=== PATIENT | male | born 1960 | race Caucasian/White ===

== ENCOUNTER 2024-05-07 15:18 | Inpatient (IN) | payer MEDICARE, BC ==
[~2024-05-07] VITALS: Ht 165.1 cm; Wt 60.8 kg
[2024-05-07] MEDS: VANCOMYCIN 1 GM in IV D5W 250 ML IV ONE (16:30)
[2024-05-07] MEDS: CEFEPIME 1 GM in IV D5W 50 ML IV ONE (17:04)
[2024-05-07 17:19] LABS: ABG PH 7.354 (7.350-7.450); SITE, ABG LEFT RADIAL
[2024-05-07 17:20] LABS: BASOPHILS % (AUTO) 0.2 % (0.0-2.0); EOSINOPHILS # (AUTO) 0.1 K/uL (0.0-0.7); EOSINOPHILS % (AUTO) 1.4 % (0.0-6.0); HEMATOCRIT 32 % (39-51); HEMOGLOBIN 10.6 g/dL (13.5-17.5); LYMPHOCYTES # (AUTO) 1.2 K/uL (0.8-4.8); LYMPHOCYTES % (AUTO) 12.2 % (20.0-44.0); MEAN CORPUSCULAR HEMOGLOBIN 31 PG (26.0-33.0); MEAN CORPUSCULAR HGB CONC 33 g/dl (31.0-36.0); MEAN CORPUSCULAR VOLUME 94 fL (80-96); MONOCYTES # (AUTO) 0.4 K/uL (0.1-1.30); MONOCYTES % (AUTO) 3.9 % (2.0-12.0); NEUTROPHILS # (AUTO) 8.2 K/uL (1.8-8.9); NEUTROPHILS % (AUTO) 82.3 % (43.0-81.0); PLATELET COUNT (AUTO) 345 K/uL (150-450); RED BLOOD CELL COUNT(AUTO) 3.39 MIL/uL (4.5-6.0)
[2024-05-07 17:20] LABS: ABG BASE EXCESS -2.5 mmol/L (-2.0-3.0); ABG PO2 169.8 mmHg (83.0-108.0); ABG TOTAL HEMOGLOBIN 10.4 G/dL (13.5-17.5); COHb 0.2 % (0.5-1.5); MetHb 0.3 % (0.0-1.5); O2Hb 98.5 % (94.0-97.0)
[2024-05-07 17:37] VITALS: O2SAT 96
[2024-05-07] MEDS: ALBUTEROL FS 2.5 MG/3 ML VIAL.NEB NEB ONE (17:37)
[2024-05-07] MEDS: IPRATROPIUM NEB FS 0.5 MG/2.5 ML AMPUL.NEB NEB ONE (17:37)
[2024-05-07 17:44] LABS: CALCIUM, SERUM 9.2 mg/dL (8.5-10.1); CARBON DIOXIDE 27 mmol/L (21-32); CHLORIDE 100 mmol/L (98-107); CREATININE 2.4 mg/dL (0.6-1.3); GLUCOSE 167 mg/dL (74-106); POTASSIUM 5.4 mmol/L (3.5-5.1); SODIUM SERUM 137 mmol/L (136-145); UREA NITROGEN, BLOOD 68 mg/dL (7-18)
[2024-05-07 17:47] VITALS: O2SAT 97
[2024-05-07] MEDS: methylPREDNISolone SOD SUCC 125 MG/2ML VIAL IV ONE (18:00)
[2024-05-07 18:08] LABS: LACTIC ACID 3.9 mmol/L (0.4-2.0)
[2024-05-07 18:12] LABS: ALANINE AMINOTRANSFERASE 17 U/L (12-78); ALBUMIN 3.5 g/dL (3.4-5.0); ALKALINE PHOSPHATASE 126 U/L (46-116); ASPARTATE AMINOTRANSFERASE 15 U/L (15-37); BILIRUBIN,DIRECT 0.1 mg/dL (0.0-0.2); BILIRUBIN,TOTAL 0.3 mg/dL (0.2-1.0); INR 0.97 (0.91-1.10); PARTIAL THROMBOPLASTIN TIME 28.8 SEC (24.3-34.3); PROTHROMBIN TIME 10.3 SECS (9.2-11.1); TOTAL PROTEIN, SERUM 9.1 g/dL (6.4-8.2)
[2024-05-07] MEDS ORDERED: TERA2CAP4 GT (18:15)
[2024-05-07] MEDS ORDERED: ACET-2070 GT (18:15)
[2024-05-07] MEDS ORDERED: POLY30DR EACHEYE (18:15)
[2024-05-07] MEDS ORDERED: INSU100V7 SQ (18:15)
[2024-05-07] MEDS ORDERED: SEVE0.8P3 GT (18:15)
[2024-05-07] MEDS ORDERED: ATOR40TA GT (18:15)
[2024-05-07] MEDS ORDERED: FOLI0.8T23 GT (18:15)
[2024-05-07] MEDS ORDERED: NEPRO 1.8 GT (18:15)
[2024-05-07] MEDS ORDERED: INSU100V39 SQ (18:15)
[2024-05-07] MEDS ORDERED: SACU1TAB GT (18:15)
[2024-05-07] MEDS ORDERED: ALBU2.5V38 IH (18:15)
[2024-05-07] MEDS ORDERED: METO25TA6 GT (18:15)
[2024-05-07] MEDS ORDERED: ZARBEES COUGH GT (18:15)
[2024-05-07] MEDS ORDERED: BETH5TAB2 GT (18:15)
[2024-05-07] MEDS ORDERED: IPRA0.2S9 IH (18:15)
[2024-05-07] MEDS ORDERED: HYDR-3980 GT (18:15)
[2024-05-07] MEDS ORDERED: FINA5TAB11 GT (18:15)
[2024-05-07] MEDS ORDERED: FAMO20TA80 GT (18:15)
[2024-05-07] MEDS ORDERED: MIDO2.5T GT (18:15)
[2024-05-07] MEDS ORDERED: EMPA10TA GT (18:15)
[2024-05-07] MEDS ORDERED: SENN8.6T19 GT (18:15)
[2024-05-07] MEDS ORDERED: ASPI-1169 GT (18:15)
[2024-05-07] MEDS ORDERED: LEVO50TA GT (18:15)
[2024-05-07] MEDS ORDERED: PHEN180L4 GT (18:15)
[2024-05-07] MEDS ORDERED: DEXT1CAP3 GT (18:15)
[2024-05-07] MEDS: IV NS 0.9% 1,000 ML BAG IV ONE (20:17)
[2024-05-07] MEDS ORDERED: ACETAMINOPHEN 325 MG TABLET MC PRN (21:30)
[2024-05-07] MEDS ORDERED: Z GUARD REMEDY 4 OZ OINT TP PRN (21:30)
[2024-05-07] MEDS ORDERED: CEFEPIME 1 GM in IV D5W 50 ML IV SCH (21:30)
[2024-05-07] MEDS ORDERED: DEXTROSE 50%-WATER 50 ML DISP.SYRIN IV PRN (21:30)
[2024-05-07] MEDS ORDERED: ONDANSETRON HCL/PF 4 MG/2 ML VIAL IVP PRN (21:30)
[2024-05-07] MEDS ORDERED: HYDROCODONE/APAP 10/325MG TABLET GT PRN (22:00)
[2024-05-07] MEDS ORDERED: ACETAMINOPHEN 650 MG/20.3 ML UDC GT PRN (23:45)
[2024-05-08] VITALS (7 sets, daily range): BP systolic 118–133; BP diastolic 69–76; TEMP 97.3–97.9; O2SAT 93–100
[2024-05-08] MEDS: BLOOD SUGAR DIAGNOSTIC 1 EACH STRIP IN SCH
[2024-05-08] MEDS: POLYVINYL ALCOHOL/POVIDONE 0.4 ML DROPERETTE EACHEYE SCH
[2024-05-08] MEDS: ATORVASTATIN 40 MG TABLET GT SCH (02:00)
[2024-05-08] MEDS: ALBUTEROL FS 2.5 MG/0.5 ML VIAL.NEB NEB PRN (02:28)
[2024-05-08] MEDS: IPRATROPIUM NEB FS 0.5 MG/2.5 ML AMPUL.NEB NEB PRN (02:28)
[2024-05-08] MEDS ORDERED: METOPROLOL TARTRATE 25 MG TABLET GT SCH (05:00)
[2024-05-08] MEDS: methylPREDNISolone SOD SUCC 40 MG/ML VIAL IV SCH (05:16)
[2024-05-08] MEDS: INSULIN REGULAR, HUMAN 100 UNIT/ML 3 ML VIAL SQ PRN (05:26)
[2024-05-08 07:19] LABS: HEMATOCRIT 32 % (39-51); HEMOGLOBIN 10.9 g/dL (13.5-17.5); LYMPHOCYTES # (AUTO) 0.4 K/uL (0.8-4.8); LYMPHOCYTES % (AUTO) 5.6 % (20.0-44.0); MEAN CORPUSCULAR HEMOGLOBIN 33 PG (26.0-33.0); MEAN CORPUSCULAR HGB CONC 34 g/dl (31.0-36.0); MEAN CORPUSCULAR VOLUME 96 fL (80-96); MONOCYTES % (AUTO) 0.5 % (2.0-12.0); NEUTROPHILS # (AUTO) 6.7 K/uL (1.8-8.9); NEUTROPHILS % (AUTO) 93.9 % (43.0-81.0); PLATELET COUNT (AUTO) 284 K/uL (150-450); RED BLOOD CELL COUNT(AUTO) 3.33 MIL/uL (4.5-6.0); RED CELL DISTRIBUTION WIDTH 14.2 % (11.5-15.0); WHITE BLOOD COUNT (AUTO) 7.1 K/uL (4.3-11.0)
[2024-05-08 07:20] LABS: CALCIUM, SERUM 9.2 mg/dL (8.5-10.1); CREATININE 1.6 mg/dL (0.6-1.3); MAGNESIUM 2.6 mg/dL (1.8-2.4); PHOSPHORUS 3.9 mg/dL (2.5-4.9); POTASSIUM 5.4 mmol/L (3.5-5.1)
[2024-05-08] MEDS: VANCOMYCIN 500 MG in IV D5W 100 ML IV SCH (08:10)
[2024-05-08] MEDS: LEVOTHYROXINE SODIUM 50 MCG TABLET GT SCH (08:10)
[2024-05-08] MEDS ORDERED: Medication Not On Formulary EA (Dextromethorphan Hbr/Quinidine (Nuedexta 20-10 Mg Capsul GT SCH (09:00)
[2024-05-08] MEDS ORDERED: MIDODRINE HCL 2.5 MG TABLET GT SCH (09:00)
[2024-05-08] MEDS: EMPAGLIFLOZIN 10 MG TABLET GT SCH (09:00)
[2024-05-08] MEDS: SEVELAMER CARBONATE 800 MG POWD.PACK GT SCH (10:08)
[2024-05-08] MEDS: SENNOSIDES 8.6 MG TABLET GT SCH (10:08)
[2024-05-08] MEDS: MIDODRINE HCL (5MG) 5 MG TABLET GT SCH (10:09)
[2024-05-08] MEDS: PANTOPRAZOLE 40 MG VIAL IV SCH (10:09)
[2024-05-08] MEDS: ASPIRIN 81 MG TAB.CHEW GT SCH (10:09)
[2024-05-08] MEDS: FINASTERIDE (5 MG) 5 MG TABLET GT SCH (10:10)
[2024-05-08] MEDS: VIT B CMPLX 3/FA/VIT C/BIOTIN 1 TAB TABLET GT SCH (10:10)
[2024-05-08] MEDS: SACUBITRIL/VALSARTAN 24/26MG TABLET GT SCH (10:10)
[2024-05-08] MEDS: BETHANECHOL CHLORIDE (25 MG) 25 MG TABLET GT SCH (10:11)
[2024-05-08] MEDS: HEPARIN SODIUM, PORCINE 5000 UNITS/1 ML VIAL SQ SCH (10:12)
[2024-05-08] MEDS: CEFEPIME 2 GM in IV D5W 100 ML IV SCH (10:14)
[2024-05-08] MEDS: GLUCERNA 1.2 1,000 ML BOTTLE NG SCH (11:35)
[2024-05-08] MEDS ORDERED: GUAIFENESIN/D-METHORPHAN HB 5 ML UDC PO PRN (12:30)
[2024-05-08] MEDS ORDERED: CEFEPIME 0.5 GM in IV D5W 50 ML IV SCH (21:00)
[2024-05-08] MEDS: TERAZOSIN HCL 1 MG CAPSULE GT SCH (21:04)
[2024-05-09] VITALS: BP 114/60; TEMP 97.9; O2SAT 100
[2024-05-09 04:00] VITALS: BP 105/70; TEMP 97.7; O2SAT 100
[2024-05-09 07:34] LABS: HEMATOCRIT 29 % (39-51); HEMOGLOBIN 9.8 g/dL (13.5-17.5); LYMPHOCYTES # (AUTO) 0.4 K/uL (0.8-4.8); LYMPHOCYTES % (AUTO) 3.5 % (20.0-44.0); MEAN CORPUSCULAR HEMOGLOBIN 32 PG (26.0-33.0); MEAN CORPUSCULAR HGB CONC 34 g/dl (31.0-36.0); MEAN CORPUSCULAR VOLUME 94 fL (80-96); MONOCYTES # (AUTO) 0.3 K/uL (0.1-1.30); MONOCYTES % (AUTO) 2.2 % (2.0-12.0); NEUTROPHILS # (AUTO) 11.7 K/uL (1.8-8.9); NEUTROPHILS % (AUTO) 94.3 % (43.0-81.0); PLATELET COUNT (AUTO) 322 K/uL (150-450); RED CELL DISTRIBUTION WIDTH 14.2 % (11.5-15.0); WHITE BLOOD COUNT (AUTO) 12.4 K/uL (4.3-11.0)
[2024-05-09 08:00] VITALS: BP 123/64; TEMP 97.9; O2SAT 100
[2024-05-09 08:08] LABS: CALCIUM, SERUM 9.2 mg/dL (8.5-10.1); CREATININE 1.5 mg/dL (0.6-1.3); POTASSIUM 4.9 mmol/L (3.5-5.1)
[2024-05-09 16:00] VITALS: BP 128/76; TEMP 97.9; O2SAT 99
[2024-05-09 20:00] VITALS: BP 137/71; TEMP 98.1; O2SAT 100
[2024-05-09 20:51] VITALS: BP 137/71; TEMP 98.1; O2SAT 100
[2024-05-10 07:19] LABS: HEMATOCRIT 33 % (39-51); LYMPHOCYTES # (AUTO) 0.7 K/uL (0.8-4.8); LYMPHOCYTES % (AUTO) 7.1 % (20.0-44.0); MEAN CORPUSCULAR HEMOGLOBIN 32 PG (26.0-33.0); MEAN CORPUSCULAR HGB CONC 34 g/dl (31.0-36.0); MEAN CORPUSCULAR VOLUME 95 fL (80-96); MONOCYTES # (AUTO) 0.3 K/uL (0.1-1.30); MONOCYTES % (AUTO) 3.3 % (2.0-12.0); NEUTROPHILS # (AUTO) 8.8 K/uL (1.8-8.9); NEUTROPHILS % (AUTO) 89.6 % (43.0-81.0); PLATELET COUNT (AUTO) 280 K/uL (150-450); RED BLOOD CELL COUNT(AUTO) 3.46 MIL/uL (4.5-6.0); RED CELL DISTRIBUTION WIDTH 14.4 % (11.5-15.0); WHITE BLOOD COUNT (AUTO) 9.8 K/uL (4.3-11.0)
[2024-05-10 07:43] LABS: CREATININE 1.3 mg/dL (0.6-1.3); POTASSIUM 5.5 mmol/L (3.5-5.1)
[2024-05-10 08:00] VITALS: BP 135/83; TEMP 97.7; O2SAT 99
[2024-05-10] MEDS: PANTOPRAZOLE 40 MG/PACK PACK NG SCH (08:53)
[2024-05-10 16:00] VITALS: BP 133/74; TEMP 98.4; O2SAT 97
[2024-05-10 20:49] VITALS: BP 133/75; TEMP 98.6; O2SAT 96
[2024-05-10 22:55] VITALS: BP 133/75; TEMP 98.6; O2SAT 96
[2024-05-11 07:40] LABS: CALCIUM, SERUM 9.2 mg/dL (8.5-10.1); CREATININE 1.4 mg/dL (0.6-1.3); POTASSIUM 4.6 mmol/L (3.5-5.1)
[2024-05-11 08:06] VITALS: BP 135/85; TEMP 98.2; O2SAT 98
[2024-05-11 08:41] VITALS: BP 135/85
[2024-05-11] MEDS ORDERED: VANCOMYCIN 750 MG in IV D5W 250 ML IV SCH (20:00)
== END 2024-05-11 19:01 | DRG 177 ==
LOC: ER 15:25 → TELE 23:16 → MED 05-09 12:52
PROVIDERS: ATTEND Nurse Practitioner Acute Care
DX: J69.0 Pneumonitis due to inhalation of food and vomit (principal); J96.21 Acute and chronic respiratory failure with hypoxia; N17.9 Acute kidney failure, unspecified; E87.20 Acidosis, unspecified; I13.0 Hypertensive heart and chronic kidney disease with heart failure and stage 1 through stage 4 chronic kidney disease, or unspecified chronic kidney disease; I50.22 Chronic systolic (congestive) heart failure; K21.9 Gastro-esophageal reflux disease without esophagitis; E11.22 Type 2 diabetes mellitus with diabetic chronic kidney disease; E03.9 Hypothyroidism, unspecified; D64.9 Anemia, unspecified; E78.5 Hyperlipidemia, unspecified; E87.5 Hyperkalemia; N18.9 Chronic kidney disease, unspecified; Z86.73 Personal history of transient ischemic attack (TIA), and cerebral infarction without residual deficits; J15.69 Pneumonia due to other Gram-negative bacteria; Z79.4 Long term (current) use of insulin; Z20.822 Contact with and (suspected) exposure to COVID-19; N40.0 Benign prostatic hyperplasia without lower urinary tract symptoms
CPT/HCPCS: 36415; 71045-TC; 76770-TC; 80048-TC; 80076-TC; 80202-TC; 82803-TC; 82962-TC; 83605-TC; 83735-TC; 83880; 84100-TC; 84484-TC; 85025-TC; 85730-TC; 87040-TC; 87081-TC; 92526; 92611-TC; 94760-TC; 94799-TC; 97110-TC; 97116-TC; 97530-TC; A4223; G0378; J0692; J1644; J1815; J2470; J2919; J3370; J3371; J7050; J7060